=== PATIENT | female | born 1935 | race Asian ===

== ENCOUNTER 2017-03-30 09:42 | Emergency (ER) | payer OTHER ==
[2017-03-30 11:04] VITALS: BP 179/88
== END 2017-03-30 11:04 | disposition home or self-care (01) ==
LOC: ED 09:42
DX: M54.9 Dorsalgia, unspecified (principal); S09.90XA Unspecified injury of head, initial encounter; I10 Essential (primary) hypertension; Z79.899 Other long term (current) drug therapy; W17.89XA Other fall from one level to another, initial encounter; Y93.89 Activity, other specified; Y99.8 Other external cause status; Y92.89 Other specified places as the place of occurrence of the external cause